=== PATIENT | male | born 1935 | race Caucasian/White ===

== ENCOUNTER 2016-09-13 17:13 | Outpatient (CLI) | payer OTHER ==
--- NOTE | 2016-09-13 18:45 | DIAGNOSTIC IMAGING REPORT ---
PROCEDURE: US KIDNEY/RENAL COMPLETE INDICATION: ABD DESTENTION TECHNIQUE: Transabdominal scans of the kidneys with calculation of resistive indices. Prevoid and postvoid bladder volumes were obtained. COMPARISON: None. FINDINGS: Small right pleural effusion. RIGHT: Kidney measures 10.6 x 5.5 x 5.3 cm. Cortex measures 1 cm. 1.4 cm lower pole cyst. No hydronephrosis. Resistive indices measure 0.74 or less. LEFT: Kidney measures 9.8 x 4.1 x 5.2 cm. Cortex measures 0.9 cm. There are two echogenic foci measuring four and 11 mm suggestive of renal calculi with mild left hydronephrosis. There is a 1.5 cm lower pole scar versus parenchymal calcification. Resistive indices measure 0.77 ounces. BLADDER: Mildly enlarged prostate measures 4.4 x 4.1 x 3.4 cm. Prevoid bladder volume 74 ml, volume 13 ml. IMPRESSION: 1. Mild left hydronephrosis with [address] intra [address]. Recommend CT abdomen pelvis without contrast 2. Right renal simple cyst 3. Mildly enlarged prostate 4. Small right pleural effusion
== END 2016-09-13 23:00 ==
LOC: US SRH 17:13
DX: N13.30 Unspecified hydronephrosis (principal); N20.0 Calculus of kidney; N40.0 Benign prostatic hyperplasia without lower urinary tract symptoms; J90 Pleural effusion, not elsewhere classified

== ENCOUNTER 2016-10-04 16:27 | Outpatient (CLI) | payer OTHER ==
--- NOTE | 2016-10-04 18:20 | DIAGNOSTIC IMAGING REPORT ---
PROCEDURE: CT ABDOMEN/PELVIS W/O CONTRAST INDICATION: Left flank pain and abdominal distention, initial encounter TECHNIQUE: Noncontrast axial images were obtained of the entire abdomen and pelvis with sagittal and coronal reformations. COMPARISON: Renal ultrasound 09/13/2016 FINDINGS: ABDOMEN: Mild left lower lobe atelectasis. Right basilar bronchial wall thickening. Small right pleural effusion. Normal heart size. Small pericardial effusion. Two small calcified gallstones. Liver, pancreas, spleen (splenule) and adrenal glands are normal. Mild atherosclerosis. Mild left renal cortical atrophy with upper pole cortical scarring. 1 cm right renal cyst. 1.5 cm left renal pelvis nonobstructing calculus. There are several additional nonobstructing left renal calculi (1 - 13 mm). Left parapelvic cysts. PELVIS: Normal appendix. Large amount of stool. Enlarged prostate (5 cm). Normal bladder. No inflammatory changes or free fluid. Mild dextroscoliosis and moderate degenerative changes of the spine. IMPRESSION: 1. 1.5 cm left renal pelvis nonobstructing calculus with additional nonobstructing left renal calculi. There is mild left renal cortical atrophy with upper pole cortical scarring. 2. Cholelithiasis 3. Severe obstipation 4. Bronchitis and mild left lower lobe atelectasis 5. Small right pleural effusion 6. Small pericardial effusion All CT scans at this facility use dose modulation, iterative reconstruction, and/or weight-based dosing when appropriate to reduce radiation dose to as low as reasonably achievable.
== END 2016-10-04 23:00 ==
LOC: CT SRH 16:27
DX: R14.0 Abdominal distension (gaseous) (principal); N20.0 Calculus of kidney; N26.1 Atrophy of kidney (terminal); K80.20 Calculus of gallbladder without cholecystitis without obstruction; K59.00 Constipation, unspecified; J40 Bronchitis, not specified as acute or chronic; J98.11 Atelectasis; J90 Pleural effusion, not elsewhere classified; I31.3 Pericardial effusion (noninflammatory)